=== PATIENT | female | born 1945 | race Caucasian/White ===

== ENCOUNTER → 2016-09-25 | Outpatient (CLI) | payer MEDICARE, OTHER ==
[~2016-09-25] MED LIST: ALPR0.5T6 PO; AMLO5TAB2 PO; CARV12.52 PO; CARV6.2512 PO; CETI10CA PO; DOXY100T PO; ECHINACEA; FURO40TA6 PO; GREEN TEA; HYDR-3144 PO; IBUP800T PO; LEVO88TA4 PO; LISI-170 PO; ONDA4TAB7 PO; POTA10CA PO; SERT50TA5 PO; SIMV20TA3 PO; [UNRECOGNIZED DRUG - CODE]; [UNRECOGNIZED DRUG - OTHER]
== END | disposition home or self-care (01) ==
LOC: CFH 15:00
PROVIDERS: ATTEND Internal Medicine Critical Care Medicine
DX: R91.8 Other nonspecific abnormal finding of lung field (principal); R06.02 Shortness of breath; R06.09 Other forms of dyspnea
CPT/HCPCS: 71250

== ENCOUNTER 2016-11-11 15:08 | Emergency (ER) | payer MEDICARE, OTHER ==
[~2016-11-11] VITALS: Ht 154.9 cm; Wt 97.2 kg
[2016-11-11 15:18] VITALS: BP 128/72
[2016-11-11] MEDS ORDERED: IBUPROFEN 200 MG TABLET ONE (15:48)
[2016-11-11] MEDS ORDERED: IBUPROFEN 200 MG TABLET PO ONE (16:00)
== END 2016-11-11 16:28 | disposition home or self-care (01) ==
LOC: ED 16:24
DX: S63.501A Unspecified sprain of right wrist, initial encounter (principal); I11.0 Hypertensive heart disease with heart failure; I50.9 Heart failure, unspecified; W19.XXXA Unspecified fall, initial encounter; Y93.89 Activity, other specified; Y92.009 Unspecified place in unspecified non-institutional (private) residence as the place of occurrence of the external cause; Y99.9 Unspecified external cause status
CPT/HCPCS: 29125; 99284

== ENCOUNTER → 2018-01-28 | Outpatient (CLI) | payer MEDICARE, OTHER ==
[~2018-01-28] MED LIST changes: +ALBU8.5H8 INH; -AMLO5TAB2 PO; +AMLO5TAB7 PO; +AZIT250T PO; -HYDR-3144 PO; +HYDR-3245 PO; +IBUP-1223 PO; -IBUP800T PO; +OSEL75CA PO; +PRED20TA PO
== END | disposition home or self-care (01) ==
LOC: CFH 16:00
PROVIDERS: ATTEND Nurse Practitioner Family
DX: M12.88 Other specific arthropathies, not elsewhere classified, other specified site (principal)
CPT/HCPCS: 72110; 73523

== ENCOUNTER → 2018-04-09 | Outpatient (CLI) | payer MEDICARE, OTHER ==
[~2018-04-09] MED LIST changes: +AMLO-150 PO; -AMLO5TAB7 PO
[2018-04-09 12:59] LABS: CALCIUM 9.6 mg/dL (8.5-10.1); CHLORIDE 106 mmol/L (98-107)
[2018-04-09 13:08] LABS: ALANINE AMINOTRANSFERASE 29 U/L (12-78); ALBUMIN 3.7 g/dL (3.4-5.0); ALKALINE PHOSPHATASE 76 U/L (45-117); ANION GAP 7 mmol/L (5-15); BILIRUBIN,TOTAL 0.5 mg/dL (0.2-1.0); CHOL/HDL RATIO 3.3; CHOLESTEROL, TOTAL 164 mg/dL (140-239); CREATININE 0.77 mg/dL (0.55-1.02); HDL CHOL % 30 % (28-40); HDL CHOLESTEROL (DIRECT) 50 mg/dL (40-60); LDL CHOLESTEROL,CALCULATED 84 mg/dL (54-169); LDL/HDL RATIO 1.7 (0.5-3.0); TOTAL PROTEIN 7.2 g/dL (6.4-8.2); TRIGLYCERIDES 150 mg/dL (50-200); VLDL CHOLESTEROL 30 mg/dL (0-25)
== END | disposition home or self-care (01) ==
LOC: CFH 09:27
PROVIDERS: ATTEND Nurse Practitioner Family
DX: I25.10 Atherosclerotic heart disease of native coronary artery without angina pectoris (principal); I50.32 Chronic diastolic (congestive) heart failure; I11.0 Hypertensive heart disease with heart failure; I50.9 Heart failure, unspecified; I42.9 Cardiomyopathy, unspecified; E03.9 Hypothyroidism, unspecified; E66.01 Morbid (severe) obesity due to excess calories; E78.5 Hyperlipidemia, unspecified; F41.1 Generalized anxiety disorder; R00.1 Bradycardia, unspecified; J44.9 Chronic obstructive pulmonary disease, unspecified
CPT/HCPCS: 36415; 71046; 80053; 80061; 83880

== ENCOUNTER → 2018-05-12 | Outpatient (CLI) | payer MEDICARE, OTHER ==
[~2018-05-12] MED LIST changes: +SERT50TA28 PO; -SERT50TA5 PO
== END | disposition home or self-care (01) ==
LOC: CFH 12:38
PROVIDERS: ATTEND Registered Nurse
DX: G47.34 Idiopathic sleep related nonobstructive alveolar hypoventilation (principal)
CPT/HCPCS: 71250

== ENCOUNTER → 2018-06-30 | Outpatient (CLI) | payer MEDICARE, OTHER ==
[~2018-06-30] MED LIST changes: +OMNIPAQUE 350 MG/ML, 100ML BOTTLE ONE
== END | disposition home or self-care (01) ==
LOC: CFH 08:07
PROVIDERS: ATTEND Physician Assistant
DX: I11.0 Hypertensive heart disease with heart failure (principal); I50.32 Chronic diastolic (congestive) heart failure; I08.1 Rheumatic disorders of both mitral and tricuspid valves; K57.30 Diverticulosis of large intestine without perforation or abscess without bleeding; E78.5 Hyperlipidemia, unspecified; Z90.710 Acquired absence of both cervix and uterus
CPT/HCPCS: 74177; 93306; Q9967

== ENCOUNTER 2018-07-09 11:21 | Day surgery (SDC) | payer MEDICARE, OTHER ==
[2018-07-08 10:14] VITALS: BP 188/61
[2018-07-08 10:38] LABS: BASOPHILS # (AUTO) 0.03 x10^3/uL (0-0.1); BASOPHILS % (AUTO) 0 % (0-1); EOSINOPHILS # (AUTO) 0.17 x10^3/uL (0-0.4); EOSINOPHILS % (AUTO) 2 % (1-7); LYMPHOCYTES % (AUTO) 19 % (22-44); MD NO; MEAN CORPUSCULAR HEMOGLOBIN 29.4 pg (27.0-34.8); MEAN CORPUSCULAR HGB CONC 33.2 g/dL (32.4-35.8); MEAN CORPUSCULAR VOLUME 88.4 fL (80-100); MEAN PLATELET VOLUME 9.4 fL (7.4-10.4); MONOCYTES # (AUTO) 0.71 x10^3/uL (0.2-0.8); MONOCYTES % (AUTO) 8 % (2-9); NEUTROPHILS # (AUTO) 6.57 x10^3/uL (1.8-6.8); NEUTROPHILS % (AUTO) 72 % (42-75); PLATELET COUNT 182 x10^3/uL (130-400); RED CELL DISTRIBUTION WIDTH 15.2 % (9.6-15.2)
[2018-07-08 10:49] LABS: ANION GAP 6 mmol/L (5-15); CALCIUM 9.3 mg/dL (8.5-10.1); CHLORIDE 105 mmol/L (98-107); CREATININE 0.78 mg/dL (0.55-1.02)
[~2018-07-09] VITALS: Ht 156.2 cm; Wt 85.9 kg
[~2018-07-09 11:21] MED LIST changes: +ALBU18HF INH; +CARV6.252 PO; +METH4TAB PO; +NITR0.4T28 SL; -OMNIPAQUE 350 MG/ML, 100ML BOTTLE ONE; +SPIR25TA PO
[2018-07-09] MEDS ORDERED: SODIUM CHLORIDE 0.9% 1,000 ML IV SCH (12:58)
[2018-07-09] MEDS ORDERED: ASPIRIN 325 MG TABLET EC PO ONE (13:00)
[2018-07-09] MEDS ORDERED: IBUP-1484 PO (13:25)
[2018-07-09] MEDS ORDERED: FLUT1BLS INH (13:25)
[2018-07-09] MEDS ORDERED: DIME50TA25 PO (13:25)
[2018-07-09] MEDS ORDERED: FLUT9.9S NAS (13:25)
[2018-07-09] MEDS ORDERED: MAGN400T36 PO (13:25)
[2018-07-09] MEDS ORDERED: LOPE2CAP PO (13:25)
[2018-07-09] MEDS ORDERED: RANI-448 PO (13:25)
[2018-07-09] MEDS ORDERED: ASPIRIN 325 MG TABLET EC ONE (13:27)
[2018-07-09] MEDS ORDERED: VERAPAMIL 2.5 MG/ML, 2ML ONE ×2 (14:05→14:39)
[2018-07-09] MEDS ORDERED: FENTANYL PF 100 MCG/2ML ONE (14:05)
[2018-07-09] MEDS ORDERED: MIDAZOLAM 1 MG/ML, 5ML ONE (14:05)
[2018-07-09] MEDS ORDERED: TICAGRELOR 90 MG TABLET ONE (14:05)
[2018-07-09] MEDS ORDERED: HEPARIN 1,000 UNITS/ML, 10ML ONE (14:05)
[2018-07-09] MEDS ORDERED: BIVALIRUDIN 250 MG ONE (14:05)
[2018-07-09] MEDS ORDERED: LIDOCAINE 2%, 20ML ONE (14:05)
== END 2018-07-09 17:42 | disposition home or self-care (01) ==
LOC: CACL 11:21
PROVIDERS: ATTEND Internal Medicine Cardiovascular Disease
DX: I25.10 Atherosclerotic heart disease of native coronary artery without angina pectoris (principal); I11.0 Hypertensive heart disease with heart failure; I50.30 Unspecified diastolic (congestive) heart failure; E78.5 Hyperlipidemia, unspecified; F41.9 Anxiety disorder, unspecified; J45.909 Unspecified asthma, uncomplicated; E03.9 Hypothyroidism, unspecified; Z88.0 Allergy status to penicillin; Z88.2 Allergy status to sulfonamides
CPT/HCPCS: 36415; 80048; 85025; 93458; 99156; 99157; C1769; C1894; J1644; J2250; J3010; J3490; Q9967; J0583

== ENCOUNTER → 2018-08-20 | Outpatient (CLI) | payer MEDICARE, OTHER ==
[~2018-08-20] MED LIST changes: +DIME50TA25 PO; +FLUT1BLS INH; +FLUT9.9S NAS; +IBUP-1484 PO; +LOPE2CAP PO; +MAGN400T36 PO; +RANI-448 PO
== END | disposition home or self-care (01) ==
LOC: CFH 13:45
DX: I08.8 Other rheumatic multiple valve diseases (principal); I11.9 Hypertensive heart disease without heart failure; I42.9 Cardiomyopathy, unspecified; E78.5 Hyperlipidemia, unspecified
CPT/HCPCS: 93306

== ENCOUNTER 2018-11-24 08:48 | Outpatient (CLI) | payer MEDICARE, OTHER | END 2018-11-24 23:59 | disposition home or self-care (01) | LOC: RAD 08:48 | PROVIDERS: ATTEND Internal Medicine Cardiovascular Disease | DX: I42.9 Cardiomyopathy, unspecified (principal) | CPT/HCPCS: 78472; A9560 ==

== ENCOUNTER → 2019-05-27 | Outpatient (CLI) | payer MEDICARE, OTHER ==
[~2019-05-27] MED LIST changes: -DIME50TA25 PO; +DIME50TA57 PO; -IBUP-1484 PO; +IBUP-1902 PO; -OSEL75CA PO; +OSEL75CA26 PO
== END | disposition home or self-care (01) ==
LOC: CFH 08:23
PROVIDERS: ATTEND Internal Medicine Cardiovascular Disease
DX: I34.0 Nonrheumatic mitral (valve) insufficiency (principal); I11.9 Hypertensive heart disease without heart failure; I42.9 Cardiomyopathy, unspecified; E78.5 Hyperlipidemia, unspecified
CPT/HCPCS: 93306

== ENCOUNTER 2019-11-24 11:49 | Outpatient (CLI) | payer MEDICARE, OTHER ==
[~2019-11-24 11:49] MED LIST changes: +ALPR0.5T7 PO; +APPLE CIDER VINEGAR PO; +CLIN300C8 PO; +DOCU100C33 PO; +FLUT100B INH; +FURO20TA3 PO; +LEVO750T26 PO; +LOSA50TA14 PO; -RANI-448 PO; +RANI-460 PO; +RIVA20TA PO; +SIMV20TA19 PO; -SIMV20TA3 PO; +SPIR25TA5 PO
== END 2019-11-24 23:59 | disposition home or self-care (01) ==
LOC: CFH 11:49
PROVIDERS: ATTEND Nurse Practitioner Family
DX: S10.93XD Contusion of unspecified part of neck, subsequent encounter (principal); E04.2 Nontoxic multinodular goiter; X58.XXXD Exposure to other specified factors, subsequent encounter
CPT/HCPCS: 76536

== ENCOUNTER 2019-11-25 12:22 | Outpatient (CLI) | payer MEDICARE, OTHER ==
[2019-11-25] MEDS ORDERED: LIDOCAINE-MPF 1%, 5ML ONE (12:39)
== END 2019-11-25 23:59 | disposition home or self-care (01) ==
LOC: RAD 12:22
PROVIDERS: ATTEND Nurse Practitioner Family
DX: E04.1 Nontoxic single thyroid nodule (principal); Z79.899 Other long term (current) drug therapy; Z79.2 Long term (current) use of antibiotics; Z72.89 Other problems related to lifestyle; Z88.0 Allergy status to penicillin; Z88.1 Allergy status to other antibiotic agents; Z88.2 Allergy status to sulfonamides; Z82.49 Family history of ischemic heart disease and other diseases of the circulatory system; Z80.0 Family history of malignant neoplasm of digestive organs
CPT/HCPCS: 10005; 88172; 88173; 88177

== ENCOUNTER → 2020-03-28 | Outpatient (CLI) | payer MEDICARE, OTHER | END | disposition home or self-care (01) | LOC: CFH 14:43 | PROVIDERS: ATTEND Physician Assistant Medical | DX: I34.0 Nonrheumatic mitral (valve) insufficiency (principal) | CPT/HCPCS: 93306 ==